=== PATIENT | male | born 1960 | race Two or more races ===

== ENCOUNTER 2016-12-30 18:01 | Emergency (ER) | payer SELFPAY ==
[2016-12-30 18:07] VITALS: BMI 25.5
[2016-12-30 18:08] VITALS: BP 148/77; PULSE 74; RESP 18; TEMP 98.2; O2SAT 100
[2016-12-30] MEDS ORDERED: Iodixanol 320 MG/ML 100 ML BOTTLE IV ONE (19:01)
== END 2016-12-30 18:10 | disposition left against medical advice (07) ==
LOC: ED 18:01
DX: Z02.89 Encounter for other administrative examinations (principal); R20.9 Unspecified disturbances of skin sensation